=== PATIENT | female | born 1990 | race American Indian/Alaskan Native ===

== ENCOUNTER → 2024-06-27 | Outpatient (CLI) | payer MEDICAID, SELFPAY | END | disposition home or self-care (01) | LOC: SWHD 13:41 | PROVIDERS: PCP Nurse Practitioner Family; Referring Provider Nurse Practitioner Family; Visit Provider Student in an Organized Health Care Education/Training Program | DX: L89.154 Pressure ulcer of sacral region, stage 4 (principal); E11.69 Type 2 diabetes mellitus with other specified complication; F32.A Depression, unspecified; F12.90 Cannabis use, unspecified, uncomplicated; G82.50 Quadriplegia, unspecified | CPT/HCPCS: 11042; A9270 ==

== ENCOUNTER → 2024-07-18 | Outpatient (CLI) | payer MEDICAID, SELFPAY | END | disposition home or self-care (01) | PROVIDERS: PCP Nurse Practitioner Family; Referring Provider Nurse Practitioner Family; Visit Provider Student in an Organized Health Care Education/Training Program | DX: L89.154 Pressure ulcer of sacral region, stage 4 (principal); E11.69 Type 2 diabetes mellitus with other specified complication; F32.A Depression, unspecified; F12.90 Cannabis use, unspecified, uncomplicated; G82.50 Quadriplegia, unspecified | CPT/HCPCS: 11042 ==

== ENCOUNTER → 2024-08-04 | Outpatient (CLI) | payer MEDICAID, SELFPAY | END | disposition home or self-care (01) | LOC: SWHD 12:55 | PROVIDERS: PCP Nurse Practitioner Family; Referring Provider Nurse Practitioner Family; Visit Provider Student in an Organized Health Care Education/Training Program | DX: L89.154 Pressure ulcer of sacral region, stage 4 (principal); E11.69 Type 2 diabetes mellitus with other specified complication; F32.A Depression, unspecified; F12.90 Cannabis use, unspecified, uncomplicated; G82.50 Quadriplegia, unspecified | CPT/HCPCS: 99213; G0463 ==

== ENCOUNTER → 2024-08-18 | Outpatient (CLI) | payer MEDICAID, SELFPAY | END | disposition home or self-care (01) | LOC: SWHD 11:05 | PROVIDERS: PCP Nurse Practitioner Family; Referring Provider Nurse Practitioner Family; Visit Provider Student in an Organized Health Care Education/Training Program | DX: Z53.21 Procedure and treatment not carried out due to patient leaving prior to being seen by health care provider (principal) ==

== ENCOUNTER → 2024-08-24 | Outpatient (CLI) | payer MEDICAID, SELFPAY | END | disposition home or self-care (01) | LOC: SWHD 13:09 | PROVIDERS: PCP Nurse Practitioner Family; Referring Provider Nurse Practitioner Family; Visit Provider Student in an Organized Health Care Education/Training Program | DX: L89.154 Pressure ulcer of sacral region, stage 4 (principal); E11.69 Type 2 diabetes mellitus with other specified complication; F32.A Depression, unspecified; F12.90 Cannabis use, unspecified, uncomplicated; G82.50 Quadriplegia, unspecified | CPT/HCPCS: 11042; A9270 ==

== ENCOUNTER → 2024-10-26 | Outpatient (CLI) | payer MEDICAID, SELFPAY | END | disposition home or self-care (01) | LOC: SWHD 10:46 | PROVIDERS: PCP Nurse Practitioner Family; Referring Provider Nurse Practitioner Family; Visit Provider Student in an Organized Health Care Education/Training Program | DX: L89.154 Pressure ulcer of sacral region, stage 4 (principal); E11.69 Type 2 diabetes mellitus with other specified complication; F32.A Depression, unspecified; F12.90 Cannabis use, unspecified, uncomplicated; G82.50 Quadriplegia, unspecified | CPT/HCPCS: 17250; A9270 ==

== ENCOUNTER 2024-12-28 09:52 | Emergency (ER) | payer MEDICAID, SELFPAY ==
[2024-12-28 10:03] VITALS: BP 114/74; PULSE 96; RESP 18; TEMP 36.7; O2SAT 95; BMI 42.3
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
--- NOTE | 2024-12-28 10:05 | PD.EDRME ---
Rapid Medical Screening Exam RME Arrival date/time: 12/28/24 09:52 34-year-old female with a history of quadriplegia presents to the emergency room with a chief complaint of a stage IV pressure ulcer to the sacrum. Patient states there is increased drainage, the appearance is black, there is tenderness to her right hip. I have greeted and performed a focused initial assessment of this patient. A comprehensive ED assessment and evaluation of the patient, analysis of all test results, and completion of the medical decision making process will be conducted by additional ED providers. Chief Complaint: Wound/Laceration Vital signs reviewed by provider: No
[2024-12-28 10:23] LABS: Lactate (Lactic Acid) 0.9 mMol/L (0.4-2.0)
[2024-12-28 10:25] LABS: Basophils # (Auto) 0.1 Thou/mm3 (0.0-0.2); Basophils % (Auto) 0 % (0-2.5); Eosinophils # (Auto) 0.2 Thou/mm3 (0.0-0.5); Eosinophils % (Auto) 2 % (0-10); Hematocrit 38.3 % (36.0-46.0); Hemoglobin 12.5 g/dL (12.0-16.0); Immature Granulocytes % (Auto) 1 % (0-0); Immature Granulocytes Auto 0.07 Thou/mm3 (0.00-0.00); Lymphocytes # (Auto) 3.4 Thou/mm3 (1.0-4.8); Lymphocytes % (Auto) 26 % (10-50); Mean Corpuscular HGB Conc 32.6 g/dl (31.0-37.0); Mean Corpuscular Hemoglobin 26.7 pg (25.0-35.0); Mean Corpuscular Volume 82 fL (80-100); Monocytes % (Auto) 7 % (0-12); Neutrophils # (Auto) 8.4 Thou/mm3 (1.8-7.7); Neutrophils % (Auto) 64 % (37-80); Nucleated Red Blood Cell % 0 /100 WBC (0); Platelet Count 469 Thou/mm3 (140-440); RDW Standard Deviation 39.6 fL (36.4-46.3); Red Blood Count 4.68 Miln/mm3 (4.00-5.20); White Blood Count 13.1 Thou/mm3 (3.6-11.0)
[2024-12-28 10:39] LABS: INR 1.1 (0.9-1.3); Partial Thromboplastin Time 28.6 Seconds (22.0-36.0); Prothrombin Time 11.9 Seconds (9.0-12.2)
[2024-12-28 10:55] LABS: HCG,Qualitative Serum Negative
[2024-12-28 10:57] LABS: Alanine Aminotransferase < 7 U/L (10-49); Albumin, Serum 4.2 gm/dL (3.5-5.0); Albumin/Globulin Ratio 1.2 (1.2-2.2); Alkaline Phosphatase 87 U/L (46-116); Anion Gap 10 (7-16); Aspartate Amino Transferase 11 U/L (0-34); BUN/Creatinine Ratio 12 Ratio (12-20); Bilirubin,Total 0.3 mg/dL (0.3-1.2); Blood Urea Nitrogen 7 mg/dL (9-23); C-Reactive Protein 12.9 mg/dL (0.0-0.9); Calcium 9.1 mg/dL (8.3-10.6); Calcium (Corrected) 9.1 mg/dL (8.5-10.1); Carbon Dioxide 26.1 mMol/L (20.0-31.0); Chloride 101 mMol/L (98-107); Creatinine (Component) 0.6 mg/dL (0.6-1.3); Estimated Creatinine Clearance 179.3 mL/min (>60); Globulin 3.4 gm/dL (2.3-3.5); Glucose 121 mg/dL (74-106); Osmolality,Calculated 272 (275-295); Potassium 3.9 mMol/L (3.4-5.1); Procalcitonin 0.07 ng/ml (0.0-0.49); Sodium 137 mMol/L (136-145); Total Protein 7.6 gm/dL (5.7-8.2); eGFR > 60 See Note
[2024-12-28 11:02] LABS: Sed Rate (ESR) 107 mm/hr (0-20)
[2024-12-28 16:01] VITALS: BP 122/92; PULSE 90; RESP 20; TEMP 36.7; O2SAT 95
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
== END 2024-12-28 17:28 | disposition home or self-care (01) ==
PROVIDERS: Nurse Practitioner Family; Emergency Provider Emergency Medicine; PCP Nurse Practitioner Family
DX: L89.154 Pressure ulcer of sacral region, stage 4 (principal); G82.50 Quadriplegia, unspecified
CPT/HCPCS: 36415; 72220; 80053; 83605; 84145; 84703; 85025; 85610; 85652; 85730; 86140; 87040; 99283

== ENCOUNTER → 2025-03-08 | Outpatient (CLI) | payer MEDICAID, SELFPAY | END | disposition home or self-care (01) | LOC: SWHD 12:57 | PROVIDERS: PCP Nurse Practitioner Family; Referring Provider Nurse Practitioner Family; Visit Provider Student in an Organized Health Care Education/Training Program | DX: L89.154 Pressure ulcer of sacral region, stage 4 (principal); L89.223 Pressure ulcer of left hip, stage 3; I95.9 Hypotension, unspecified; F12.929 Cannabis use, unspecified with intoxication, unspecified; G82.20 Paraplegia, unspecified; E11.69 Type 2 diabetes mellitus with other specified complication; F12.90 Cannabis use, unspecified, uncomplicated; M16.11 Unilateral primary osteoarthritis, right hip; Z79.4 Long term (current) use of insulin | CPT/HCPCS: 97597; 99212; A9270; G0463 ==

== ENCOUNTER → 2025-03-23 | Outpatient (CLI) | payer MEDICAID, SELFPAY | END | disposition home or self-care (01) | LOC: SWHD 10:49 | PROVIDERS: PCP Nurse Practitioner Family; Referring Provider Nurse Practitioner Family; Visit Provider Student in an Organized Health Care Education/Training Program | DX: L89.154 Pressure ulcer of sacral region, stage 4 (principal); L89.223 Pressure ulcer of left hip, stage 3; I95.9 Hypotension, unspecified; F12.929 Cannabis use, unspecified with intoxication, unspecified; G82.20 Paraplegia, unspecified; F12.90 Cannabis use, unspecified, uncomplicated; M16.11 Unilateral primary osteoarthritis, right hip; Z79.4 Long term (current) use of insulin | CPT/HCPCS: 11042; A9270 ==

== ENCOUNTER → 2025-04-06 | Outpatient (CLI) | payer MEDICAID, SELFPAY | END | disposition home or self-care (01) | LOC: SWHD 10:43 | PROVIDERS: PCP Nurse Practitioner Family; Referring Provider Nurse Practitioner Family; Visit Provider Student in an Organized Health Care Education/Training Program | DX: L89.154 Pressure ulcer of sacral region, stage 4 (principal); L89.223 Pressure ulcer of left hip, stage 3; I95.9 Hypotension, unspecified; F12.929 Cannabis use, unspecified with intoxication, unspecified; G82.20 Paraplegia, unspecified; F12.90 Cannabis use, unspecified, uncomplicated; M16.11 Unilateral primary osteoarthritis, right hip; Z79.4 Long term (current) use of insulin | CPT/HCPCS: 97597; A9270 ==

== ENCOUNTER → 2025-04-10 | Outpatient (BNVA) | payer MEDICAID, SELFPAY | END | disposition home or self-care (01) | PROVIDERS: PCP Nurse Practitioner Family; Referring Provider Nurse Practitioner Family; Visit Provider Urology | DX: N31.9 Neuromuscular dysfunction of bladder, unspecified (principal); Z87.440 Personal history of urinary (tract) infections; L89.90 Pressure ulcer of unspecified site, unspecified stage; G82.50 Quadriplegia, unspecified; N28.1 Cyst of kidney, acquired; Z74.01 Bed confinement status | CPT/HCPCS: 99212; G0463 ==

== ENCOUNTER → 2025-04-13 | Outpatient (CLI) | payer MEDICAID, SELFPAY | END | disposition home or self-care (01) | LOC: SWHD 10:49 | PROVIDERS: PCP Nurse Practitioner Family; Referring Provider Nurse Practitioner Family; Visit Provider Student in an Organized Health Care Education/Training Program | DX: L89.154 Pressure ulcer of sacral region, stage 4 (principal); L89.224 Pressure ulcer of left hip, stage 4; I95.9 Hypotension, unspecified; F12.90 Cannabis use, unspecified, uncomplicated; M16.11 Unilateral primary osteoarthritis, right hip; Z79.4 Long term (current) use of insulin; F12.929 Cannabis use, unspecified with intoxication, unspecified | CPT/HCPCS: 11042; A9270 ==

== ENCOUNTER → 2025-04-20 | Outpatient (CLI) | payer MEDICAID, SELFPAY | END | disposition home or self-care (01) | LOC: SWHD 10:31 | PROVIDERS: PCP Nurse Practitioner Family; Referring Provider Nurse Practitioner Family; Visit Provider Student in an Organized Health Care Education/Training Program | DX: L89.154 Pressure ulcer of sacral region, stage 4 (principal); L89.224 Pressure ulcer of left hip, stage 4; I95.9 Hypotension, unspecified; F12.90 Cannabis use, unspecified, uncomplicated; M16.11 Unilateral primary osteoarthritis, right hip; Z79.4 Long term (current) use of insulin; F12.929 Cannabis use, unspecified with intoxication, unspecified | CPT/HCPCS: 11044; 97597; A9270 ==

== ENCOUNTER → 2025-04-24 | Outpatient (CLI) | payer MEDICAID, SELFPAY ==
--- NOTE | 2025-04-24 11:56 | XR_ITS ---
Examination:Left hip AP, lateral, AP pelvis 3 views Technique: Hip AP lateral, AP pelvis, 3 views Exam date and time:April 24, 2025 1240 hours INDICATIONS: Left hip redness swelling and pain this week. FINDINGS: Soft tissue air density medial to the left hip adjacent to the ischium and left inferior pubic ramus There appears to be bone destruction involving the inferior pubic ramus and ischium Healed left subcapital hip fracture Mild to moderate narrowing left hip joint Moderate narrowing right hip joint IMPRESSION: Recommend CT scan pelvis follow-up to confirm osteomyelitis left inferior pubic ramus left ischium
== END | disposition home or self-care (01) ==
LOC: SDIM 11:37
PROVIDERS: Referring Provider Student in an Organized Health Care Education/Training Program; Visit Provider Student in an Organized Health Care Education/Training Program
DX: M86.10 Other acute osteomyelitis, unspecified site (principal); L89.324 Pressure ulcer of left buttock, stage 4
CPT/HCPCS: 73502

== ENCOUNTER → 2025-05-03 | Outpatient (CLI) | payer MEDICAID, SELFPAY | END | disposition home or self-care (01) | LOC: SWHD 08:26 | PROVIDERS: PCP Internal Medicine; Referring Provider Internal Medicine; Visit Provider Student in an Organized Health Care Education/Training Program | DX: L89.154 Pressure ulcer of sacral region, stage 4 (principal); L89.224 Pressure ulcer of left hip, stage 4; I95.9 Hypotension, unspecified; F12.90 Cannabis use, unspecified, uncomplicated; M16.11 Unilateral primary osteoarthritis, right hip; Z79.4 Long term (current) use of insulin | CPT/HCPCS: 11044; 11047 ×2; A9270 ==

== ENCOUNTER 2025-05-18 10:55 | Emergency (ER) | payer MEDICAID, SELFPAY ==
--- NOTE | 2025-05-18 11:31 | PC.NURSE ---
PT CALLED BACK TO BE SEEN BY PROVIDER. NO RESPONSE X1 @[id number]. LOBBY AND OUTSIDE CHECKED. NO RESPONSE
--- NOTE | 2025-05-18 11:47 | PC.NURSE ---
PT CALLED BACK TO BE SEEN BY PROVIDER. NO RESPONSE X2 @[id number]. LOBBY AND OUTSIDE CHECKED
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
== END 2025-05-18 13:07 | disposition left against medical advice (07) ==
LOC: SERX 12:22
PROVIDERS: Emergency Provider Family Medicine
DX: Z53.21 Procedure and treatment not carried out due to patient leaving prior to being seen by health care provider (principal)
CPT/HCPCS: 99284

== ENCOUNTER → 2025-05-22 | Outpatient (CLI) | payer MEDICAID, SELFPAY ==
--- NOTE | 2025-05-22 | XR_ITS ---
Examination: Foot, left, 3 views Technique: AP, oblique, lateral views foot, 3 views Date and time of exam: May 22, 2025, 1217 hours INDICATIONS: Injury to the foot 1 week ago, foot pain. FINDINGS: Severe osteopenia No acute foot fracture Please see the ankle report IMPRESSION: No acute foot fracture
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
== END | disposition home or self-care (01) ==
PROVIDERS: PCP Nurse Practitioner Family; Referring Provider Nurse Practitioner Family; Visit Provider Nurse Practitioner Family
DX: S99.922A Unspecified injury of left foot, initial encounter (principal); S82.402A Unspecified fracture of shaft of left fibula, initial encounter for closed fracture; X58.XXXA Exposure to other specified factors, initial encounter
CPT/HCPCS: 73610; 73630

== ENCOUNTER → 2025-06-16 | Outpatient (CLI) | payer MEDICAID, SELFPAY | END | disposition home or self-care (01) | LOC: SWHD 09:47 | PROVIDERS: PCP Nurse Practitioner Family; Referring Provider Nurse Practitioner Family; Visit Provider Surgery | DX: L89.153 Pressure ulcer of sacral region, stage 3 (principal); L89.224 Pressure ulcer of left hip, stage 4; I95.9 Hypotension, unspecified; F12.90 Cannabis use, unspecified, uncomplicated; M16.11 Unilateral primary osteoarthritis, right hip; Z79.4 Long term (current) use of insulin | CPT/HCPCS: 11042 ==

== ENCOUNTER → 2025-06-23 | Outpatient (CLI) | payer MEDICAID, SELFPAY | END | disposition home or self-care (01) | LOC: SWHD 10:55 | PROVIDERS: PCP Nurse Practitioner Family; Referring Provider Nurse Practitioner Family; Visit Provider Surgery | DX: L89.154 Pressure ulcer of sacral region, stage 4 (principal); L89.224 Pressure ulcer of left hip, stage 4; I95.9 Hypotension, unspecified; F12.90 Cannabis use, unspecified, uncomplicated; M16.11 Unilateral primary osteoarthritis, right hip; Z79.4 Long term (current) use of insulin | CPT/HCPCS: 11042 ==

== ENCOUNTER → 2025-06-23 | Outpatient (BNVA) | payer MEDICAID, SELFPAY | END | disposition home or self-care (01) | PROVIDERS: PCP Nurse Practitioner Family; Referring Provider Nurse Practitioner Family; Visit Provider Urology | DX: N31.9 Neuromuscular dysfunction of bladder, unspecified (principal); L89.159 Pressure ulcer of sacral region, unspecified stage; E11.9 Type 2 diabetes mellitus without complications; G82.50 Quadriplegia, unspecified | CPT/HCPCS: 99212; G0463 ==

== ENCOUNTER → 2025-07-07 | Outpatient (CLI) | payer MEDICAID, SELFPAY | END | disposition home or self-care (01) | LOC: SWHD 11:19 | PROVIDERS: PCP Nurse Practitioner Family; Referring Provider Nurse Practitioner Family; Visit Provider Surgery | DX: L89.154 Pressure ulcer of sacral region, stage 4 (principal); L89.224 Pressure ulcer of left hip, stage 4; I95.9 Hypotension, unspecified; F12.90 Cannabis use, unspecified, uncomplicated; M16.11 Unilateral primary osteoarthritis, right hip; Z79.4 Long term (current) use of insulin | CPT/HCPCS: 11042; A9270 ==

== ENCOUNTER → 2025-07-21 | Outpatient (CLI) | payer MEDICAID, SELFPAY | END | disposition home or self-care (01) | LOC: SWHD 11:01 | PROVIDERS: PCP Nurse Practitioner Family; Referring Provider Nurse Practitioner Family; Visit Provider Surgery | DX: L89.154 Pressure ulcer of sacral region, stage 4 (principal); L89.224 Pressure ulcer of left hip, stage 4; I95.9 Hypotension, unspecified; F12.90 Cannabis use, unspecified, uncomplicated; M16.11 Unilateral primary osteoarthritis, right hip; Z79.4 Long term (current) use of insulin | CPT/HCPCS: 99212; A9270; G0463 ==